=== PATIENT | female | born 1985 | race African-American/Black ===

== ENCOUNTER 2018-03-01 16:41 | Inpatient (IN) | payer OTHER ==
[~2018-03-01] VITALS: Ht 167.6 cm; Wt 99.8 kg
--- NOTE | 2018-03-01 17:23 | Emergency Room Report ---
History of Present Illness General Chief Complaint: Abdominal Pain Source: Patient Present Illness HPI 33-year-old female patient presents ER complaining of abdominal pain related to uterine fibroids. Reports a history of fibroids previously diagnosed. 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 Denies vaginal bleeding. Denies dysuria, hematuria. Reports history of anemia, states " I think I am anemic right now". Requesting labs to check anemia status. Reports was previously received blood transfusions twice in the past, reports transfusion occurred "about a year ago" . Denies fever, chest pain, shortness breath, intractable vomiting, back pain. Requesting pain medication. Denies recent syncope or fainting episodes. Allergies: Coded Allergies: No Known Allergies (Unverified , 03/01/18) Patient History Past Medical History: see triage record Last Menstrual Period: on period Reviewed Nursing Documentation: PMH: Agreed; PSxH: Agreed Nursing Documentation-PMH Past Medical History: No History, Except For Review of Systems All Other Systems: negative except mentioned in HPI Physical Exam Vital Signs Date Time Temp Pulse Resp B/P (MAP) Pulse Ox O2 Delivery O2 Flow Rate FiO2 03/01/18 16:45 97.6 71 16 113/69 99 Room Air 97.5 Sp02 EP Interpretation: reviewed, normal General Appearance: well appearing, no apparent distress, alert, GCS 15, non- toxic Head: normocephalic, atraumatic Eyes: bilateral eye normal inspection, bilateral eye PERRL ENT: hearing grossly normal, normal pharynx, no angioedema, normal voice, uvula midline, moist mucus membranes Neck: full range of motion Respiratory: lungs clear, normal breath sounds, no rhonchi, no respiratory distress, no accessory muscle use, no wheezing, speaking full sentences Cardiovascular #1: regular rate, rhythm, no edema Gastrointestinal: non tender, soft, no mass, non-distended, no guarding, no rebound, other - negative Rovsing, negative Mondragon Genitourinary: no CVA tenderness Musculoskeletal: back normal, digits/nails normal, gait/station normal, normal range of motion, non-tender Neurologic: alert, oriented x3, responsive, motor strength/tone normal, sensory intact Psychiatric: mood/affect normal Skin: no rash Medical Decision Making PA Attestation Dr. Nash is my supervising Physician whom patient management has been discussed with. Diagnostic Impression: Primary Impression: Anemia Additional Impression: Fibroid, uterine ER Course Pt. presents to the ED c/o fibroid pain and feeling "anemic". Ddx considered but are not limited to UTI, anemia, fibroids, cystis. Low suspicion for appendicitis, negative Rovsing sign. No flank pain, no vomiting, low suspicion for nephrolithiasis. Begin abdominal pain workup. Provided patient with pain medication. Vital signs: are WNL, pt. is afebrile ORDERS: CBC, CMP, Lipase, UA, Urine , IV fluids, Toradol and [place]. CURES reviewed. ER COURSE: Patient reports relief of pain symptoms with medication. CBC shows decreased hemoglobin level, 6.0, and hematocrit, 22.9, will order blood transfusion. UA equivocal, negative nitrites, no pelvic tenderness to palpation, no dysuria, hematuria, vaginal discharge, low suspicion for UTI, does not require antibiotic treatment at this time. Continue to monitor for worsening of symptoms. Urine negative. Coag studies within normal limits. CMP unremarkable. Type and screen show B positive, negative antibody. Discuss results with patient. Patient resting comfortably in bed, in no acute distress, nontoxic appearing. Ordered 2 units of packed RBCs. Explained to patient the risks of blood transfusion, patient understands risks and is okay with transfusion. Patient to be admitted to Dr. Blandon. Consult with Dr. Nash, patient to be admitted for anemia and uterine fibroids. - Please note that this Emergency Department Report was dictated using [employer] assistant sales marketing technology software, occasionally this can lead to erroneous entry secondary to interpretation by the dictation equipment. Labs Test 03/01/18 16:25 03/01/18 18:11 03/01/18 19:30 Urine Color Pale yellow Urine Appearance Cloudy Urine pH 8 (4.5-8.0) Urine Specific Burt 1.010 (1.005-1.035) Urine Protein 1+ (NEGATIVE) Urine Glucose (UA) Negative (NEGATIVE) Urine Ketones Negative (NEGATIVE) Urine Occult Blood 5+ (NEGATIVE) Urine Nitrite Negative (NEGATIVE) Urine Bilirubin Negative (NEGATIVE) Urine Urobilinogen Normal MG/DL (0.0-1.0) Urine Leukocyte Esterase 1+ (NEGATIVE) Urine RBC Tntc /HPF (0 - 2) Urine WBC 5-10 /HPF (0 - 2) Urine Squamous Epithelial Cells Few /LPF (NONE/OCC) Urine Bacteria Few /HPF (NONE) Urine HCG, Qualitative Negative (NEGATIVE) White Blood Count 9.3 K/UL (4.8-10.8) Red Blood Count 4.14 M/UL (4.20-5.40) Hemoglobin 6.0 G/DL (12.0-16.0) Hematocrit 22.9 % (37.0-47.0) Mean Corpuscular Volume 55 FL (80-99) Mean Corpuscular Hemoglobin 14.4 PG (27.0-31.0) Mean Corpuscular Hemoglobin Concent 26.0 G/DL (32.0-36.0) Red Cell Distribution Width 15.3 % (11.6-14.8) Platelet Count 467 K/UL (150-450) Mean Platelet Volume 5.8 FL (6.5-10.1) Neutrophils (%) (Auto) % (45.0-75.0) Lymphocytes (%) (Auto) % (20.0-45.0) Monocytes (%) (Auto) % (1.0-10.0) Eosinophils (%) (Auto) % (0.0-3.0) Basophils (%) (Auto) % (0.0-2.0) Differential Total Cells Counted 100 Neutrophils % (Manual) 78 % (45-75) Lymphocytes % (Manual) 8 % (20-45) Monocytes % (Manual) 8 % (1-10) Eosinophils % (Manual) 6 % (0-3) Basophils % (Manual) 0 % (0-2) Band Neutrophils 0 % (0-8) Nucleated Red Blood Cells 2 /100 WBC Platelet Estimate Increased Platelet Morphology Normal Polychromasia 3+ Poikilocytosis 1+ Anisocytosis 1+ Microcytosis 3+ Sodium Level 137 MMOL/L (136-145) Potassium Level 3.8 MMOL/L (3.5-5.1) Chloride Level 105 MMOL/L (98-107) Carbon Dioxide Level 25 MMOL/L (21-32) Anion Gap 7 mmol/L (5-15) Blood Urea Nitrogen 10 mg/dL (7-18) Creatinine 0.8 MG/DL (0.55-1.30) Estimat Glomerular Filtration Rate > 60 mL/min (>60) Glucose Level 98 MG/DL (74-106) Calcium Level 8.5 MG/DL (8.5-10.1) Total Bilirubin 0.2 MG/DL (0.2-1.0) Aspartate Amino Transf (AST/SGOT) 19 U/L (15-37) Alanine Aminotransferase (ALT/SGPT) 21 U/L (12-78) Alkaline Phosphatase 47 U/L (46-116) Total Protein 7.8 G/DL (6.4-8.2) Albumin 3.4 G/DL (3.4-5.0) Globulin 4.4 g/dL Albumin/Globulin Ratio 0.8 (1.0-2.7) Lipase 264 U/L (73-393) Prothrombin Time 10.2 SEC (9.30-11.50) Prothromb Time International Ratio 1.0 (0.9-1.1) Activated Partial Thromboplast Time 24 SEC (23-33) Last Vital Signs Date Time Temp Pulse Resp B/P (MAP) Pulse Ox O2 Delivery O2 Flow Rate FiO2 03/01/18 16:45 97.6 71 16 113/69 99 Room Air 97.5 Disposition: ADMITTED INPATIENT Condition: Serious Hebert Lemos Mar 01, 2018 17:23
[2018-03-01] MEDS ORDERED: Ketorolac 30mg Inj IV ONE (17:30)
[2018-03-01] MEDS ORDERED: Norco 5mg/325mg tab ORAL ONE (17:30)
[2018-03-01 17:51] LABS: APPEARANCE,URINE CLOUDY; BILIRUBIN, URINE NEGATIVE (NEGATIVE); COLOR,URINE PALE YELLOW; GLUCOSE, URINE (UA) NEGATIVE (NEGATIVE); KETONES,URINE NEGATIVE (NEGATIVE); LEUKOCYTE ESTERASE ,URINE 1+ (NEGATIVE); NITRITE,URINE NEGATIVE (NEGATIVE); PH,URINE 8 (4.5-8.0); PROTEIN,URINE 1+ (NEGATIVE); UROBILINOGEN,URINE NORMAL MG/DL (0.0-1.0)
[2018-03-01 18:31] VITALS: BP 122/71
[2018-03-01 18:51] LABS: HEMATOCRIT 22.9 % (37.0-47.0); MEAN CORPUSCULAR VOLUME 55 FL (80-99); PLATELET COUNT 467 K/UL (150-450); RED BLOOD COUNT 4.14 M/UL (4.20-5.40); RED CELL DISTRIBUTION WIDTH 15.3 % (11.6-14.8); WHITE BLOOD COUNT 9.3 K/UL (4.8-10.8)
[2018-03-01 19:10] LABS: ANION GAP 7 mmol/L (5-15); BLOOD UREA NITROGEN 10 mg/dL (7-18); CALCIUM 8.5 MG/DL (8.5-10.1); CARBON DIOXIDE 25 MMOL/L (21-32); CHLORIDE 105 MMOL/L (98-107); CREATININE 0.8 MG/DL (0.55-1.30); POTASSIUM 3.8 MMOL/L (3.5-5.1); SODIUM 137 MMOL/L (136-145)
[2018-03-01 19:14] LABS: ALANINE AMINOTRANSFERASE 21 U/L (12-78); ALBUMIN 3.4 G/DL (3.4-5.0); ALBUMIN/GLOBULIN RATIO 0.8 (1.0-2.7); ALKALINE PHOSPHATASE 47 U/L (46-116); ASPARTATE AMINO TRANSFERASE 19 U/L (15-37); BILIRUBIN,TOTAL 0.2 MG/DL (0.2-1.0)
[2018-03-01] MEDS ORDERED: NKM (22:50)
[2018-03-01 23:30] VITALS: BP 127/79
[2018-03-02] VITALS: BP 137/69
[2018-03-02 00:10] VITALS: BP 110/64
[2018-03-02 04:00] VITALS: BP 134/85
[2018-03-02 10:12] LABS: HEMATOCRIT 26.5 % (37.0-47.0); HEMOGLOBIN 7.5 G/DL (12.0-16.0); MEAN CORPUSCULAR VOLUME 60 FL (80-99); PLATELET COUNT 430 K/UL (150-450); RED BLOOD COUNT 4.44 M/UL (4.20-5.40); RED CELL DISTRIBUTION WIDTH 22.1 % (11.6-14.8); WHITE BLOOD COUNT 8.4 K/UL (4.8-10.8)
[2018-03-02 10:32] LABS: ANION GAP 5 mmol/L (5-15); BLOOD UREA NITROGEN 7 mg/dL (7-18); CALCIUM 8.7 MG/DL (8.5-10.1); CARBON DIOXIDE 26 MMOL/L (21-32); CHLORIDE 107 MMOL/L (98-107); CREATININE 0.6 MG/DL (0.55-1.30); POTASSIUM 4.4 MMOL/L (3.5-5.1); SODIUM 138 MMOL/L (136-145)
[2018-03-02 10:37] LABS: % IRON SATURATION 7 % (15-50); IRON 23 ug/dL (50-175); TOTAL IRON BINDING CAPACITY 311 ug/dL (250-450)
[2018-03-02 10:48] LABS: FERRITIN 2 NG/ML (8-388)
[2018-03-02 12:12] VITALS: BP 132/58
[2018-03-02] MEDS: Morphine Sulfate 2mg/ml Inj IVP PRN ×2 (12:45→17:14)
[2018-03-02] MEDS ORDERED: Morphine Sulfate 2mg/ml Inj IVP SCH (14:30)
[2018-03-02] MEDS ORDERED: Premarin Inj IV ONE (18:30)
[2018-03-02] MEDS ORDERED: Premarin Inj IV SCH ×2 (19:00→21:30)
[2018-03-02 20:00] VITALS: BP 134/86
[2018-03-02] MEDS: Norco 5mg/325mg tab ORAL PRN (20:53)
[2018-03-02] MEDS: Iron Sucrose 100 MG in NS 55 ML IV SCH (20:53)
--- NOTE | 2018-03-02 22:42 | Diagnostic Imaging Report ---
EXAM: US Pelvis Complete, Transabdominal CLINICAL HISTORY: ABD PAIN TECHNIQUE: Real-time transabdominal pelvic ultrasound (complete) with image documentation. COMPARISON: No relevant prior studies available. FINDINGS: Uterus/cervix: Heterogeneous lesions throughout the body and fundus of the uterus suggesting fibroids. Uterus measures 7.9 x 7.3 x 5.3 cm. Normal endometrial stripe thickness. Right ovary: Right ovary was not visualized. Left ovary: Follicles noted within the left ovary. No torsion. Left ovary measures 3.6 x 2.5 x 1.5 cm. Free fluid: Trace free fluid in the pelvis. IMPRESSION: Uterine fibroids. Right ovary not visualized. Left ovary is unremarkable.
--- NOTE | 2018-03-02 23:18 | History and Physical ---
History of Present Illness General Date patient seen: Mar 02, 2018 Reason for Hospitalization: Abdominal Pain Present Illness HPI 33 y/o female with a PMH of uterine fibroids and anemia presented to the ER for severe abdominal pain and dizziness. Patient was noted to have a Hgb of 6.0 and was transfused 2 units pRBC. Patient states that she is currently on her menstruation and is heavy. States that she has previously received blood transfusions and hospitalized for similar symptoms whenever she is menstruating. States that she has not seen her OBGYN for her fibroids for several months. Also reports nausea/vomiting with 1 episode of NBNB emesis. Denies melena, hematechezia, hematuria. Denies f/c, sob, headaches. Allergies: Coded Allergies: No Known Allergies (Unverified , 03/01/18) Medication History Scheduled No Known Medications* (NKM - No Known Medications*), 0 ., (Reported) Patient History Healthcare decision maker Resuscitation status Full Code Advanced Directive on File Review of Systems All Other Systems: negative except mentioned in HPI Physical Exam General Appearance: alert, mild distress HEENT: normocephalic, atraumatic Neck: non-tender, normal alignment, supple Respiratory/Chest: chest wall non-tender, lungs clear, normal breath sounds Cardiovascular/Chest: normal peripheral pulses, normal rate, regular rhythm Abdomen: soft, tender Extremities: normal range of motion, non-tender Skin Exam: normal pigmentation, warm/dry Neurologic: junior architect II-XII grossly normal, no motor/sensory deficits, alert, oriented x 3 Last 24 Hour Vital Signs Date Time Temp Pulse Resp B/P (MAP) Pulse Ox O2 Delivery O2 Flow Rate FiO2 03/02/18 21:52 97.9 03/02/18 21:00 Room Air 03/02/18 20:00 97.9 61 19 134/86 (102) 100 97.9 03/02/18 12:15 Room Air 03/02/18 12:12 98.2 88 20 132/58 (82) 98 98.2 03/02/18 04:00 97.9 59 18 134/85 (101) 100 97.9 03/02/18 02:45 Room Air 03/02/18 00:10 97.5 76 16 110/64 (79) 100 97.5 03/02/18 00:05 97.8 71 16 137/69 100 Room Air 97.8 7/13/18 00:00 97.8 71 16 137/69 100 Room Air 97.8 03/01/18 23:30 97.5 71 16 127/79 100 Room Air 97.5 Laboratory Tests Test 03/02/18 09:25 White Blood Count 8.4 K/UL (4.8-10.8) Red Blood Count 4.44 M/UL (4.20-5.40) Hemoglobin 7.5 G/DL (12.0-16.0) L Hematocrit 26.5 % (37.0-47.0) L Mean Corpuscular Volume 60 FL (80-99) #L Mean Corpuscular Hemoglobin 17.0 PG (27.0-31.0) L Mean Corpuscular Hemoglobin Concent 28.4 G/DL (32.0-36.0) L Red Cell Distribution Width 22.1 % (11.6-14.8) H Platelet Count 430 K/UL (150-450) Mean Platelet Volume 6.0 FL (6.5-10.1) L Neutrophils (%) (Auto) % (45.0-75.0) Lymphocytes (%) (Auto) % (20.0-45.0) Monocytes (%) (Auto) % (1.0-10.0) Eosinophils (%) (Auto) % (0.0-3.0) Basophils (%) (Auto) % (0.0-2.0) Differential Total Cells Counted 100 Neutrophils % (Manual) 75 % (45-75) Lymphocytes % (Manual) 16 % (20-45) L Monocytes % (Manual) 7 % (1-10) Eosinophils % (Manual) 2 % (0-3) Basophils % (Manual) 0 % (0-2) Band Neutrophils 0 % (0-8) Nucleated Red Blood Cells 1 /100 WBC Other Cell Type Platelet Estimate Adequate Platelet Morphology Normal Hypochromasia 2+ Anisocytosis 2+ Microcytosis 1+ Tear Drop Cells 1+ Ovalocytes 1+ Hemoglobin A Pending Hemoglobin A2 Pending Hemoglobin C Pending Hemoglobin F () Pending Hemoglobin S Pending Variant Hemoglobin Pending Hemoglobin Electrophoresis Interp Pending Hemoglobin Interpretation Pending Hemoglobin Solubility Pending Sodium Level 138 MMOL/L (136-145) Potassium Level 4.4 MMOL/L (3.5-5.1) Chloride Level 107 MMOL/L (98-107) Carbon Dioxide Level 26 MMOL/L (21-32) Anion Gap 5 mmol/L (5-15) Blood Urea Nitrogen 7 mg/dL (7-18) Creatinine 0.6 MG/DL (0.55-1.30) Estimat Glomerular Filtration Rate > 60 mL/min (>60) Glucose Level 94 MG/DL (74-106) Calcium Level 8.7 MG/DL (8.5-10.1) Iron Level 23 ug/dL (50-175) L Total Iron Binding Capacity 311 ug/dL (250-450) Percent Iron Saturation 7 % (15-50) L Unsaturated Iron Binding 288 ug/dL (112-346) Ferritin 2 NG/ML (8-388) L Height (Feet): 5 Height (Inches): 6.00 Weight (Pounds): 220 Medications Current Medications Medications (Trade) Dose Ordered Sig/Christopher Route PRN Reason Start Time Stop Time Status Last Admin Dose Admin Acetaminophen (Tylenol) 650 mg Q6H PRN ORAL Mild Pain/Temp > 100.5 03/02/18 12:37 04/01/18 12:36 Acetaminophen/ Hydrocodone Bitart ([place] 5/325) 1 tab Q4H PRN ORAL Moderate Pain (Pain Scale 4-6) 03/02/18 12:37 03/09/18 12:36 03/02/18 20:53 Dextrose (Dextrose 50%) 25 ml STAT PRN IV Hypoglycemia 03/02/18 00:15 04/01/18 00:14 Dextrose (Dextrose 50%) 50 ml STAT PRN IV Hypoglycemia 03/02/18 00:15 04/01/18 00:14 Iron Sucrose 100 mg/Sodium Chloride 60 ml @ 240 mls/hr BEDTIME IV 03/02/18 21:00 03/06/18 21:14 03/02/18 20:53 Morphine Sulfate (Morphine Sulfate) 1 mg Q4H PRN IVP Severe Pain (Pain Scale 7-10) 03/02/18 12:37 03/09/18 12:36 03/02/18 17:14 Ondansetron HCl (Zofran) 4 mg Q4H PRN IVP Nausea & Vomiting 03/02/18 13:20 04/01/18 13:19 7/13/18 13:31 Assessment/Plan Problem List: (1) Intractable abdominal pain ICD Codes: R10.9 - Unspecified abdominal pain SNOMED: 11263252, 538563096 (2) Fibroid, uterine ICD Codes: D25.9 - Leiomyoma of uterus, unspecified SNOMED: 26553932 (3) Acute blood loss anemia ICD Codes: D62 - Acute posthemorrhagic anemia SNOMED: 889006208 Status: stable, progressing Assessment/Plan - Admit to inpatient - s/p 2 units pRBC - Trend H/H - F/u pelvic ultrasound - D/w patient to f/u with OBGYN as outpatient - pain control and supportive care DC back home once medically stable and pain controlled DVT Prophylaxis: SCD Code Status: Full Hospital Classification Declaration: Based on this initial evaluation, and depending on the patient's clinical course, I anticipate that this patient will require hospitalization for 1-2 days for acute blood loss anemia and close respiratory/hemodynamic monitoring. Disposition: Once the patient is stable to leave the hospital, I anticipate the patient will likely be discharged to the following environment: home I spent 71 minutes on this patient's case, and 39 minutes were dedicated to counseling and/or care coordination. Discussed with patient/family, nursing staff, SW/CM, it infrastructure architect regarding clinical status, treatment course, and disposition planning. Time of note may not reflect time of encounter. Paris Timmons NP Mar 02, 2018 23:18
[2018-03-03] VITALS: BP 131/90
--- NOTE | 2018-03-03 02:01 | Consultation ---
DATE OF CONSULTATION: 03/02/2018 HEMATOLOGY/ONCOLOGY CONSULTATION CONSULTING PHYSICIAN: Lang Abdalla M.D. REQUESTING PHYSICIAN: 1. Teresa Blandon M.D. 2. Paris Timmons NP. REASON FOR CONSULTATION: Evaluation of severe anemia. IDENTIFYING DATA: Dear Paris Timmons and Dr. Blandon, The patient is a pleasant 33-year-old female with past medical history significant for history of anemia. At this time, presents to the ER due to uterine fibroid bleed, which was previously diagnosed and has not been seen by Information Assurance Analyst for several months, and was told that she was supposed to have a surgery for removal. Denies any vaginal bleeding. Denies any dysuria or hematuria. No fevers. No chills. No night sweats. Noted to be iron anemic. The patient history of anemia status and Hematology Service was consulted for further evaluation and underlying treatment. Peripheral smear reviewed. No evidence of blasts were noted. The patient's ferritin is 2 and is severely iron deficient. PAST MEDICAL HISTORY: Anemia and uterine fibroids. PAST SURGICAL HISTORY: None. ALLERGIES: No known drug allergies. REVIEW OF SYSTEMS: CONSTITUTIONAL: No fevers, chills, or night sweats. SKIN: No rashes, bumps, or itching. HEENT: No headache, hearing or visual changes. BREASTS: No lumps, pain, or discharge. PULMONARY: No cough, sputum, or shortness of breath. GASTROINTESTINAL: No nausea, vomiting, or diarrhea. GENITOURINARY: No dysuria, frequency, or urgency. MUSCULOSKELETAL: No joint swelling, muscle pain, or trauma. PHYSICAL EXAMINATION: VITAL SIGNS: Reviewed. GENERAL: No acute distress. LUNGS: Decreased breath sounds. CARDIOVASCULAR: Regular rate. No S3 or S4. ABDOMEN: Soft, nontender, and nondistended. EXTREMITIES: 1+ edema. LABORATORY DATA: WBC 13.4, hemoglobin 7.5, hematocrit 26, and platelet count 130,000. MCV of 60. We will also order hemoglobin electrophoresis. ASSESSMENT AND RECOMMENDATIONS: 1. Anemia due to severe iron deficiency. I have begun the patient on 5 days of IV iron, likely related to underlying fibroid bleed. In addition, ordered hemoglobin electrophoresis. Results are pending at this time. 2. Leukocytosis in response to underlying anemia, which is a proper response. 3. Thrombocytosis, likely reactive process to anemia. 4. Macrocytosis, likely secondary to underlying uterine bleed. 5. Weakness and fatigue, likely due to underlying anemia. In addition, administer one dose of Premarin. I appreciate the consultation. Lang Abdalla M.D. DR: ARMANDO JOB#: [id number] CC:
[2018-03-03 04:00] VITALS: BP 121/87
[2018-03-03 08:00] VITALS: BP 128/86
[2018-03-03 09:43] LABS: ANION GAP 8 mmol/L (5-15); BLOOD UREA NITROGEN 8 mg/dL (7-18); CALCIUM 8.4 MG/DL (8.5-10.1); CARBON DIOXIDE 25 MMOL/L (21-32); CHLORIDE 103 MMOL/L (98-107); CREATININE 0.7 MG/DL (0.55-1.30); POTASSIUM 3.5 MMOL/L (3.5-5.1); SODIUM 136 MMOL/L (136-145)
[2018-03-03 09:44] LABS: HEMATOCRIT 25.9 % (37.0-47.0); HEMOGLOBIN 7.5 G/DL (12.0-16.0); MEAN CORPUSCULAR VOLUME 59 FL (80-99); PLATELET COUNT 490 K/UL (150-450); RED BLOOD COUNT 4.39 M/UL (4.20-5.40); WHITE BLOOD COUNT 10.3 K/UL (4.8-10.8)
[2018-03-03 09:48] LABS: ALANINE AMINOTRANSFERASE 19 U/L (12-78); ALBUMIN/GLOBULIN RATIO 0.7 (1.0-2.7); ALKALINE PHOSPHATASE 40 U/L (46-116); ASPARTATE AMINO TRANSFERASE 16 U/L (15-37); BILIRUBIN,TOTAL 0.5 MG/DL (0.2-1.0)
--- NOTE | 2018-03-03 10:33 | General Progress Note ---
Assessment/Plan Status: unchanged Assessment/Plan 1. Anemia due to severe iron deficiency. --> 5 days of IV iron, likely related to underlying fibroid bleed. --> Ordered hemoglobin electrophoresis. Results are pending at this time. --> Anemia w/u has been reviewed, will trend daily. --> Hgb goal >7 2. Leukocytosis in response to underlying anemia, which is a proper response. --> currently resolved. 3. Thrombocytosis, likely reactive process to anemia. 4. Macrocytosis, likely secondary to underlying uterine bleed. 5. Weakness and fatigue, likely due to underlying anemia. In addition, administer one dose of Premarin. Subjective Date patient seen: Mar 03, 2018 ROS Limited/Unobtainable: Yes Gastrointestinal/Abdominal: Reports: abdominal pain Hematologic/Lymphatic: Reports: anemia Allergies: Coded Allergies: No Known Allergies (Unverified , 03/01/18) All Systems: reviewed and negative except above Subjective No acute events. Pt a/o x4. US shows uterine fibroids. Objective Last 24 Hour Vital Signs Date Time Temp Pulse Resp B/P (MAP) Pulse Ox O2 Delivery O2 Flow Rate FiO2 03/03/18 04:00 98.2 71 19 121/87 (98) 99 98.2 03/03/18 00:00 98.1 56 19 131/90 (104) 94 98.1 03/02/18 21:52 97.9 03/02/18 21:00 Room Air 03/02/18 20:00 97.9 61 19 134/86 (102) 100 97.9 03/02/18 12:15 Room Air 03/02/18 12:12 98.2 88 20 132/58 (82) 98 98.2 Laboratory Tests 03/03/18 09:15: White Blood Count 10.3, Red Blood Count 4.39, Hemoglobin 7.5L, Hematocrit 25.9L , Mean Corpuscular Volume 59L, Mean Corpuscular Hemoglobin 17.1L, Mean Corpuscular Hemoglobin Concent 29.0L, Red Cell Distribution Width 22.0H, Platelet Count 490H, Mean Platelet Volume 6.3L, Neutrophils (%) (Auto) , Lymphocytes (%) (Auto) , Monocytes (%) (Auto) , Eosinophils (%) (Auto) , Basophils (%) (Auto) , Neutrophils % (Manual) [Pending], Lymphocytes % (Manual) [Pending], Platelet Estimate [Pending], Platelet Morphology [Pending], Sodium Level 136, Potassium Level 3.5, Chloride Level 103, Carbon Dioxide Level 25, Anion Gap 8, Blood Urea Nitrogen 8, Creatinine 0.7, Estimat Glomerular Filtration Rate > 60, Glucose Level 92, Calcium Level 8.4L, Total Bilirubin 0.5 , Aspartate Amino Transf (AST/SGOT) 16, Alanine Aminotransferase (ALT/SGPT) 19, Alkaline Phosphatase 40L, Total Protein 7.1, Albumin 3.0L, Globulin 4.1, Albumin /Globulin Ratio 0.7L Height (Feet): 5 Height (Inches): 6.00 Weight (Pounds): 220 General Appearance: no apparent distress, alert EENT: PERRL/EOMI Neck: normal alignment, supple Cardiovascular: normal peripheral pulses Respiratory/Chest: normal breath sounds, no respiratory distress Abdomen: guarding, tender Lang Abdalla MD Mar 03, 2018 10:33
[2018-03-03] MEDS: Morphine Sulfate 2mg/ml Inj IVP PRN ×2 (10:51→16:13)
[2018-03-03 12:00] VITALS: BP 129/71
--- NOTE | 2018-03-03 15:20 | Internal Med Progress Note ---
Subjective Date of Service: Mar 03, 2018 Physician Name Lurdes Sandy Attending Physician Teresa Blandon MD Current Medications Medications (Trade) Dose Ordered Sig/Christopher Route PRN Reason Start Time Stop Time Status Last Admin Dose Admin Acetaminophen (Tylenol) 650 mg Q6H PRN ORAL Mild Pain/Temp > 100.5 03/02/18 12:37 04/01/18 12:36 Acetaminophen/ Hydrocodone Bitart ([place] 5/325) 1 tab Q4H PRN ORAL Moderate Pain (Pain Scale 4-6) 03/02/18 12:37 03/09/18 12:36 03/02/18 20:53 Dextrose (Dextrose 50%) 25 ml STAT PRN IV Hypoglycemia 03/02/18 00:15 04/01/18 00:14 Dextrose (Dextrose 50%) 50 ml STAT PRN IV Hypoglycemia 03/02/18 00:15 04/01/18 00:14 Iron Sucrose 100 mg/Sodium Chloride 60 ml @ 240 mls/hr BEDTIME IV 03/02/18 21:00 03/06/18 21:14 03/02/18 20:53 Morphine Sulfate (Morphine Sulfate) 1 mg Q4H PRN IVP Severe Pain (Pain Scale 7-10) 03/02/18 12:37 03/09/18 12:36 03/03/18 10:51 Ondansetron HCl (Zofran) 4 mg Q4H PRN IVP Nausea & Vomiting 03/02/18 13:20 04/01/18 13:19 03/03/18 13:19 Allergies: Coded Allergies: No Known Allergies (Unverified , 03/01/18) Subjective feels markedly weak Objective Last Vital Signs Date Time Temp Pulse Resp B/P (MAP) Pulse Ox O2 Delivery O2 Flow Rate FiO2 03/03/18 12:00 97.9 62 20 129/71 (90) 96 97.9 03/03/18 09:00 Room Air Laboratory Tests Test 03/03/18 09:15 White Blood Count 10.3 K/UL (4.8-10.8) Red Blood Count 4.39 M/UL (4.20-5.40) Hemoglobin 7.5 G/DL (12.0-16.0) L Hematocrit 25.9 % (37.0-47.0) L Mean Corpuscular Volume 59 FL (80-99) L Mean Corpuscular Hemoglobin 17.1 PG (27.0-31.0) L Mean Corpuscular Hemoglobin Concent 29.0 G/DL (32.0-36.0) L Red Cell Distribution Width 22.0 % (11.6-14.8) H Platelet Count 490 K/UL (150-450) H Mean Platelet Volume 6.3 FL (6.5-10.1) L Neutrophils (%) (Auto) % (45.0-75.0) Lymphocytes (%) (Auto) % (20.0-45.0) Monocytes (%) (Auto) % (1.0-10.0) Eosinophils (%) (Auto) % (0.0-3.0) Basophils (%) (Auto) % (0.0-2.0) Differential Total Cells Counted 100 Neutrophils % (Manual) 86 % (45-75) H Lymphocytes % (Manual) 8 % (20-45) L Monocytes % (Manual) 5 % (1-10) Eosinophils % (Manual) 1 % (0-3) Basophils % (Manual) 0 % (0-2) Band Neutrophils 0 % (0-8) Platelet Estimate Increased H Platelet Morphology Normal Hypochromasia 2+ Anisocytosis 2+ Microcytosis 2+ Ovalocytes 1+ Schistocytes 1+ Sodium Level 136 MMOL/L (136-145) Potassium Level 3.5 MMOL/L (3.5-5.1) Chloride Level 103 MMOL/L (98-107) Carbon Dioxide Level 25 MMOL/L (21-32) Anion Gap 8 mmol/L (5-15) Blood Urea Nitrogen 8 mg/dL (7-18) Creatinine 0.7 MG/DL (0.55-1.30) Estimat Glomerular Filtration Rate > 60 mL/min (>60) Glucose Level 92 MG/DL (74-106) Calcium Level 8.4 MG/DL (8.5-10.1) L Total Bilirubin 0.5 MG/DL (0.2-1.0) Aspartate Amino Transf (AST/SGOT) 16 U/L (15-37) Alanine Aminotransferase (ALT/SGPT) 19 U/L (12-78) Alkaline Phosphatase 40 U/L (46-116) L Total Protein 7.1 G/DL (6.4-8.2) Albumin 3.0 G/DL (3.4-5.0) L Globulin 4.1 g/dL Albumin/Globulin Ratio 0.7 (1.0-2.7) L Assessment/Plan Status: stable Assessment/Plan Assessment/Plan Problem List: (1) Intractable abdominal pain ICD Codes: R10.9 - Unspecified abdominal pain SNOMED: 46662930, 355245837 (2) Fibroid, uterine ICD Codes: D25.9 - Leiomyoma of uterus, unspecified SNOMED: 29621295 (3) Acute blood loss anemia ICD Codes: D62 - Acute posthemorrhagic anemia SNOMED: 573106983 Status: stable, progressing Assessment/Plan - s/p 2 units pRBC- hemoglobin 7.5 - Trend H/H - F/u pelvic ultrasound - D/w patient to f/u with OBGYN as outpatient - pain control and supportive care DC back home once medically stable and pain controlled DVT Prophylaxis: SCD Code Status: Full Hospital Classification Declaration: Based on this initial evaluation, and depending on the patient's clinical course, I anticipate that this patient will require hospitalization for 1-2 days for acute blood loss anemia and close respiratory/hemodynamic monitoring. Disposition: Once the patient is stable to leave the hospital, I anticipate the patient will likely be discharged to the following environment: home I spent 71 minutes on this patient's case, and 39 minutes were dedicated to counseling and/or care coordination. Discussed with patient/family, nursing staff, SW/CM, dairy machine operator farmworker regarding clinical status, treatment course, and disposition planning. Time of note may not reflect time of encounter. Lurdes Sandy M.D. Mar 03, 2018 15:20
[2018-03-03 16:00] VITALS: BP 143/87
[2018-03-03] MEDS: D5 1/2NS 1,000 ML IV SCH (16:12)
[2018-03-03] MEDS: Norco 5mg/325mg tab ORAL PRN (17:55)
[2018-03-03 20:00] VITALS: BP 122/71
[2018-03-03] MEDS: Iron Sucrose 100 MG in NS 55 ML IV SCH (21:08)
[2018-03-04] VITALS: BP 130/75
[2018-03-04] MEDS: D5 1/2NS 1,000 ML IV SCH ×3 (02:01→17:09)
[2018-03-04] MEDS: Morphine Sulfate 2mg/ml Inj IVP PRN (03:50)
[2018-03-04 04:00] VITALS: BP 130/88
[2018-03-04] MEDS: Norco 5mg/325mg tab ORAL PRN ×3 (06:20→19:39)
[2018-03-04 08:00] VITALS: BP 130/63
[2018-03-04 08:42] LABS: HEMATOCRIT 28.4 % (37.0-47.0); MEAN CORPUSCULAR VOLUME 59 FL (80-99); PLATELET COUNT 605 K/UL (150-450); RED BLOOD COUNT 4.78 M/UL (4.20-5.40); RED CELL DISTRIBUTION WIDTH 22.6 % (11.6-14.8); WHITE BLOOD COUNT 9.7 K/UL (4.8-10.8)
[2018-03-04 12:00] VITALS: BP 128/64
[2018-03-04 16:00] VITALS: BP 130/63
--- NOTE | 2018-03-04 17:15 | Internal Med Progress Note ---
Subjective Physician Name Lurdes Sandy Attending Physician Teresa Blandon MD Current Medications Medications (Trade) Dose Ordered Sig/Christopher Route PRN Reason Start Time Stop Time Status Last Admin Dose Admin Acetaminophen (Tylenol) 650 mg Q6H PRN ORAL Mild Pain/Temp > 100.5 03/02/18 12:37 04/01/18 12:36 Acetaminophen/ Hydrocodone Bitart (Fountain 5/325) 1 tab Q4H PRN ORAL Moderate Pain (Pain Scale 4-6) 03/02/18 12:37 03/09/18 12:36 03/04/18 14:14 Dextrose (Dextrose 50%) 25 ml STAT PRN IV Hypoglycemia 03/02/18 00:15 04/01/18 00:14 Dextrose (Dextrose 50%) 50 ml STAT PRN IV Hypoglycemia 03/02/18 00:15 04/01/18 00:14 Dextrose/Sodium Chloride 1,000 ml @ 100 mls/hr Q10H IV 03/03/18 16:30 04/02/18 16:29 03/04/18 17:09 Iron Sucrose 100 mg/Sodium Chloride 60 ml @ 240 mls/hr BEDTIME IV 03/02/18 21:00 03/06/18 21:14 03/03/18 21:08 Morphine Sulfate (Morphine Sulfate) 1 mg Q4H PRN IVP Severe Pain (Pain Scale 7-10) 03/02/18 12:37 03/09/18 12:36 03/04/18 03:50 Ondansetron HCl (Zofran) 4 mg Q4H PRN IVP Nausea & Vomiting 03/02/18 13:20 04/01/18 13:19 03/03/18 13:19 Allergies: Coded Allergies: No Known Allergies (Unverified , 03/01/18) Subjective feels markedly weak Objective Last Vital Signs Date Time Temp Pulse Resp B/P (MAP) Pulse Ox O2 Delivery O2 Flow Rate FiO2 03/04/18 16:00 97.8 62 18 130/63 (85) 99 97.8 03/04/18 08:53 Room Air Laboratory Tests Test 03/04/18 08:05 White Blood Count 9.7 K/UL (4.8-10.8) Red Blood Count 4.78 M/UL (4.20-5.40) Hemoglobin 8.0 G/DL (12.0-16.0) L Hematocrit 28.4 % (37.0-47.0) L Mean Corpuscular Volume 59 FL (80-99) L Mean Corpuscular Hemoglobin 16.7 PG (27.0-31.0) L Mean Corpuscular Hemoglobin Concent 28.1 G/DL (32.0-36.0) L Red Cell Distribution Width 22.6 % (11.6-14.8) H Platelet Count 605 K/UL (150-450) H Mean Platelet Volume 6.4 FL (6.5-10.1) L Neutrophils (%) (Auto) % (45.0-75.0) Lymphocytes (%) (Auto) % (20.0-45.0) Monocytes (%) (Auto) % (1.0-10.0) Eosinophils (%) (Auto) % (0.0-3.0) Basophils (%) (Auto) % (0.0-2.0) Differential Total Cells Counted 100 Neutrophils % (Manual) 76 % (45-75) H Lymphocytes % (Manual) 13 % (20-45) L Monocytes % (Manual) 11 % (1-10) H Eosinophils % (Manual) 0 % (0-3) Basophils % (Manual) 0 % (0-2) Band Neutrophils 0 % (0-8) Platelet Estimate Increased H Platelet Morphology Normal Polychromasia 1+ Hypochromasia 2+ Anisocytosis 2+ Microcytosis 2+ Intake and Output 03/03/18 03/04/18 19:00 07:00 Intake Total 200 ml 1360.00 ml Balance 200 ml 1360.00 ml Intake Oral 200 ml 300 ml IV Total 1060.00 ml # Voids 2 2 Assessment/Plan Assessment/Plan Assessment/Plan Problem List: (1) Intractable abdominal pain ICD Codes: R10.9 - Unspecified abdominal pain SNOMED: 00414009, [id number] (2) Fibroid, uterine ICD Codes: D25.9 - Leiomyoma of uterus, unspecified SNOMED: 29312543 (3) Acute blood loss anemia ICD Codes: D62 - Acute posthemorrhagic anemia SNOMED: 991128565 Status: stable, progressing Assessment/Plan - s/p 2 units pRBC- hemoglobin 8.5 continue with IV iron follow hemoglobin electrophoresis - Trend H/H - F/u pelvic ultrasound - D/w patient to f/u with OBGYN as outpatient - pain control and supportive care DC back home once medically stable and pain controlled DVT Prophylaxis: SCD Code Status: Full Hospital Classification Declaration: Based on this initial evaluation, and depending on the patient's clinical course, I anticipate that this patient will require hospitalization for 1-2 days for acute blood loss anemia and close respiratory/hemodynamic monitoring. Disposition: Once the patient is stable to leave the hospital, I anticipate the patient will likely be discharged to the following environment: home I spent 71 minutes on this patient's case, and 39 minutes were dedicated to counseling and/or care coordination. Discussed with patient/family, nursing staff, SW/CM, loom doffer regarding clinical status, treatment course, and disposition planning. Time of note may not reflect time of encounter. Lurdes Sandy M.D. Mar 04, 2018 17:15
[2018-03-04 20:00] VITALS: BP 106/76
[2018-03-04] MEDS: Iron Sucrose 100 MG in NS 55 ML IV SCH (21:00)
[2018-03-05] VITALS: BP 113/56
[2018-03-05 04:00] VITALS: BP 115/60
[2018-03-05 08:00] VITALS: BP 139/85
[2018-03-05] MEDS: D5 1/2NS 1,000 ML IV SCH (08:16)
[2018-03-05] MEDS: Norco 5mg/325mg tab ORAL PRN ×2 (08:17→14:50)
--- NOTE | 2018-03-05 11:35 | General Progress Note ---
Assessment/Plan Status: stable Assessment/Plan 1. Anemia due to severe iron deficiency. --> 5 days of IV iron, likely related to underlying fibroid bleed. --> Ordered hemoglobin electrophoresis. Results are pending at this time. --> Anemia w/u has been reviewed, will trend daily. --> Hgb goal >7 2. Leukocytosis in response to underlying anemia, which is a proper response. --> currently resolved. 3. Thrombocytosis, likely reactive process to anemia. 4. Macrocytosis, likely secondary to underlying uterine bleed. 5. Weakness and fatigue, likely due to underlying anemia. In addition, administer one dose of Premarin. Subjective Date patient seen: Mar 04, 2018 ROS Limited/Unobtainable: Yes Gastrointestinal/Abdominal: Reports: abdominal pain Hematologic/Lymphatic: Reports: anemia Allergies: Coded Allergies: No Known Allergies (Unverified , 03/01/18) All Systems: reviewed and negative except above Subjective No acute events. Pt a/o x4. Pt c/o abd pain. Vitals are stable. Objective Last 24 Hour Vital Signs Date Time Temp Pulse Resp B/P (MAP) Pulse Ox O2 Delivery O2 Flow Rate FiO2 03/05/18 09:16 97.9 03/05/18 08:17 97.9 03/05/18 08:00 97.6 65 22 139/85 (103) 97 97.6 03/05/18 04:00 97.9 60 18 115/60 (78) 100 97.9 03/05/18 00:00 98.1 62 18 113/56 (75) 100 98.1 03/04/18 21:00 Room Air 03/04/18 20:00 97.6 65 18 106/76 (86) 97 97.6 03/04/18 16:00 97.8 62 18 130/63 (85) 99 97.8 03/04/18 12:00 97.6 64 18 128/64 (85) 98 97.6 Intake and Output 03/04/18 03/05/18 19:00 07:00 Intake Total 1480 ml 900 ml Balance 1480 ml 900 ml Intake Oral 480 ml 400 ml IV Total 1000 ml 500 ml # Voids 2 2 Height (Feet): 5 Height (Inches): 6.00 Weight (Pounds): 220 General Appearance: no apparent distress EENT: PERRL/EOMI Neck: normal alignment Cardiovascular: normal peripheral pulses Respiratory/Chest: no respiratory distress Abdomen: tender Lang Abdalla MD Mar 05, 2018 11:35
[2018-03-05 12:00] VITALS: BP 133/79
[2018-03-05] MEDS ORDERED: FERROUS SULFAT325 M2 ORAL (13:37)
[2018-03-05 16:00] VITALS: BP 119/64
--- NOTE | 2018-03-06 15:20 | General Progress Note ---
Assessment/Plan Status: stable Assessment/Plan 1. Anemia due to severe iron deficiency. --> 5 days of IV iron, likely related to underlying fibroid bleed. --> Ordered hemoglobin electrophoresis. Results are pending at this time. --> Anemia w/u has been reviewed, will trend daily. --> Hgb goal >7 2. Leukocytosis in response to underlying anemia, which is a proper response. --> currently resolved. 3. Thrombocytosis, likely reactive process to anemia. 4. Macrocytosis, likely secondary to underlying uterine bleed. 5. Weakness and fatigue, likely due to underlying anemia. In addition, administer one dose of Premarin. Subjective Date patient seen: Mar 05, 2018 Allergies: Coded Allergies: No Known Allergies (Unverified , 03/01/18) All Systems: reviewed and negative except above Subjective Pt is stable and medically cleared for DC. NAD. Objective Last 24 Hour Vital Signs Date Time Temp Pulse Resp B/P (MAP) Pulse Ox O2 Delivery O2 Flow Rate FiO2 03/05/18 16:00 97.1 58 21 119/64 (82) 99 97.1 03/05/18 15:49 97.1 Intake and Output 03/05/18 03/06/18 19:00 07:00 Intake Total 720 ml Balance 720 ml Intake Oral 720 ml Height (Feet): 5 Height (Inches): 6.00 Weight (Pounds): 220 General Appearance: no apparent distress EENT: PERRL/EOMI Neck: normal alignment Cardiovascular: normal peripheral pulses Respiratory/Chest: no respiratory distress Abdomen: tender Lang Abdalla MD Mar 06, 2018 15:20
--- NOTE | 2018-03-07 09:40 | Discharge Summary ---
Discharge Summary Discharge Summary _ DATE OF ADMISSION: 03/01/2018 DATE OF DISCHARGE: 03/05/2018 REASON FOR ADMISSION: 33 years old female with past medical history of uterine fibroids and anemia, presented to emergency department due to severe abdominal pain, dizziness and lightheadedness. Patient was having currently her menstrual period, which she described as heavy. Patient described similar episodes in the past. Patient reported having blood transfusion in the past for similar symptoms and being hospitalized for it. Symptoms seem to happen during her menstrual periods Patient had not seen her [facility] for uterine fibroids for several months. Patient reported nausea, and one episode of nonbilious nonbloody emesis. She denied melena, hematuria, hematochezia. She denied fever, chills, shortness of breath and headache. Upon evaluation noted hemoglobin 6.0 hematocrit 22.9. Platelets 467 ,MCV 55. Urinalysis revealed no evidence of UTI . test was negative. Patient was typed, crossed and transfused with 2 units of packed red blood cells. Patient was admitted for further management with diagnoses of intractable abdominal pain, uterine fibroids, anemia . CONSULTANTS: round kiln drawer/oncologist Dr. Abdalla [facility] HOSPITAL COURSE: Patient admitted. Patient initially undergone 2 units of packed red blood cell transfusion. Anemia workup was consistent with severe iron deficiency anemia. Hematology consult was requested. Patient started on the IV Venofer. In addition, patient received 1 dose of IV Premarin. Per round kiln drawer, thrombocytosis was likely reactive due to anemia and microcytosis was likely secondary to underlying uterine bleeding. Pelvic ultrasound revealed uterine fibroids, no other significant findings. Pain management was addressed. Supportive care provided. Patient was able to tolerate diet. Dizziness and lightheadedness resolved. Pain controlled. Abdominal pain was likely secondary to uterine fibroids and severe bleeding. Prior to discharge hemoglobin 8.0 hematocrit 28.4. Patient was discussed to follow-up with her outpatient [facility] next week. Patient stabilized and was ready for discharge. FINAL DIAGNOSES: Intractable abdominal pain Uterine fibroids Acute blood loss anemia Anemia of severe iron deficiency Microcytosis Thrombocytosis DISCHARGE MEDICATIONS: See Medication Reconciliation list. DISCHARGE INSTRUCTIONS: Patient was discharged home. Follow up with [facility] next week for further management of fibroids controlled. I have been assigned to dictate discharge summary for this account. I was not involved in the patient's management. Guillermina Victoria NP Mar 07, 2018 09:40
== END 2018-03-05 16:55 | disposition home or self-care (01) | DRG 532 ==
LOC: EMR 17:05 → 3E 20:15 → EDBEDREQ 21:57
PROC: 30233N1 Transfusion of Nonautologous Red Blood Cells into Peripheral Vein, Percutaneous Approach (ICD-10-PCS; principal; 2018-03-02)
DX: D25.9 Leiomyoma of uterus, unspecified (principal); D62 Acute posthemorrhagic anemia; D47.3 Essential (hemorrhagic) thrombocythemia
CPT/HCPCS: 36415; 76830; 76856; 80048; 80053; 81003; 81025; 82728; 83020; 83540; 83550; 83690; 85007; 85025; 85610; 85730; 86850; 86900; 86901; 86920; 99285; J2405